=== PATIENT | male | born 1990 | race African-American/Black ===

== ENCOUNTER 2021-08-09 09:57 | Emergency (ER) | payer MEDICAID ==
[~2021-08-09] VITALS: Ht 167.6 cm; Wt 73.0 kg
[2021-08-09 12:21] LABS: BASOPHILS % 0.7 % (0.0-2.0); EOSINOPHILS % 2.3 % (0.0-5.0); HEMATOCRIT. 38.4 % (42.0-52.0); HEMOGLOBIN. 13.7 g/dL (14.0-18.0); LYMPHOCYTES % 31.1 % (20.0-50.0); MEAN CORPUSCULAR HEMOGLOBIN 31.5 pg (28.0-32.0); MEAN CORPUSCULAR VOLUME 88.3 fL (80.0-94.0); MEAN PLATELET VOLUME 8.2 fl (7.4-10.4); NEUTROPHILS % 55.9 % (40.0-76.0); PLATELET 248 x1000/uL (130-400); RED BLOOD CELL COUNT 4.35 mill/uL (4.7-6.1); RED CELL DISTRIBUTION WIDTH 13.8 % (11.6-14.6)
[2021-08-09 12:27] LABS: CHLORIDE 105 mEq/L (98-107)
[2021-08-09] MEDS ORDERED: P50 MT (12:46)
[2021-08-09 12:56] VITALS: BP 126/75
== END 2021-08-09 12:58 | disposition home or self-care (01) ==
LOC: ER 09:57
DX: L50.9 Urticaria, unspecified (principal)
CPT/HCPCS: 36415; 80053; 85025; 93970; 99284